=== PATIENT | male | born 1975 | race Two or more races ===

== ENCOUNTER 2018-12-13 01:21 | Emergency (ER) | payer MEDICAID ==
[~2018-12-13] VITALS: Ht 170.2 cm; Wt 108.9 kg
[2018-12-13 01:30] VITALS: Ht 170.2 cm; Wt 108.9 kg
[2018-12-13 02:07] VITALS: BP 132/78
== END 2018-12-13 02:07 | disposition home or self-care (01) ==
LOC: ED 01:21
DX: L50.9 Urticaria, unspecified (principal); I10 Essential (primary) hypertension; E11.9 Type 2 diabetes mellitus without complications
CPT/HCPCS: J2930; Q0163

== ENCOUNTER 2019-12-25 14:03 | Emergency (ER) | payer MEDICAID ==
[~2019-12-25] VITALS: Ht 172.7 cm; Wt 109.3 kg
[2019-12-25 14:13] VITALS: Ht 172.7 cm; Wt 109.3 kg
[2019-12-25 16:51] VITALS: BP 122/74
== END 2019-12-25 16:51 | disposition home or self-care (01) ==
LOC: ED 14:03
DX: S46.912A Strain of unspecified muscle, fascia and tendon at shoulder and upper arm level, left arm, initial encounter (principal); I10 Essential (primary) hypertension; E11.9 Type 2 diabetes mellitus without complications; X50.0XXA Overexertion from strenuous movement or load, initial encounter; Y93.89 Activity, other specified; Y92.89 Other specified places as the place of occurrence of the external cause; Y99.8 Other external cause status